=== PATIENT | male | born 1995 | race American Indian/Alaskan Native ===

== ENCOUNTER 2019-01-26 22:43 | Emergency (ER) | payer OTHER ==
[2019-01-27] MEDS ORDERED: MORPHINE IV ONE ×2 (01:53→03:05)
--- NOTE | 2019-01-27 02:23 | XRay Report ---
PROCEDURE: XR KNEE 1-2V RT TECHNIQUE: AP and lateral views of the right knee were obtained. HISTORY: fall with laceration to bone COMPARISONS: None FINDINGS: There is extensive soft tissue laceration deformity in the infrapatellar soft tissues. Injury to the patellar tendon cannot be excluded. A definite fracture is not seen. IMPRESSION: Extensive soft tissue injury and deformity of the infrapatellar area. Injury to the patellar tendon c annot be excluded. No definite acute fracture seen.. This document is electronically signed by Derek Quintana MD., January 27 2019 02:21:39 AM ET
--- NOTE | 2019-01-27 02:45 | Emergency Department Report ---
- General Chief Complaint: Wound/Laceration Stated Complaint: R KNEE INJURY Time Seen by Provider: 01/27/19 01:32 Source: patient Mode of arrival: Ambulatory Limitations: No Limitations - History of Present Illness Initial Comments: 23-year-old -[place] Citizen male comes in for right knee laceration status post fall. She reports she was running around a car to get in the front seat when he slipped and fell and hit his knee on the bumper of a car. Patient reports that he is up-to-date on his tetanus shot. Patient has no past medical history currently takes no medications on a daily basis does not smoke and no surgical history. -: During the night Extremity Location: Right: Knee Place: outdoors Patient Tetanus UTD: Yes Context: accidental Associated Symptoms: pain Treatments Prior to Arrival: bandage - Related Data Previous Rx's Medication Instructions Recorded Last Taken Type Ibuprofen [Motrin 800 MG tab] 800 mg PO Q8HR PRN #30 tablet 01/27/19 Unknown Rx cephALEXin [Keflex] 500 mg PO Q8HR #30 cap 01/27/19 Unknown Rx traMADol [Ultram 50 MG tab] 50 mg PO Q6HR PRN #12 tablet 01/27/19 Unknown Rx Allergies Allergy/AdvReac Type Severity Reaction Status Date / Time No Known Allergies Allergy Unverified 01/27/19 03:05 ED Review of Systems ROS: Stated complaint: R KNEE INJURY Other details as noted in HPI Comment: All other systems reviewed and negative Skin: other ED Past Medical Hx - Past Medical History Previous Medical History?: No - Surgical History Past Surgical History?: No - Social History Smoking Status: Never Smoker Substance Use Type: None - Medications Home Medications: Home Medications Medication Instructions Recorded Confirmed Last Taken Type Ibuprofen [Motrin 800 MG tab] 800 mg PO Q8HR PRN #30 tablet 01/27/19 Unknown Rx cephALEXin [Keflex] 500 mg PO Q8HR #30 cap 01/27/19 Unknown Rx traMADol [Ultram 50 MG tab] 50 mg PO Q6HR PRN #12 tablet 01/27/19 Unknown Rx ED Physical Exam - General Limitations: No Limitations General appearance: alert, in no apparent distress - Head Head exam: Present: atraumatic, normocephalic - Eye Eye exam: Present: normal appearance - Expanded Lower Extremity Exam Right Hip exam: Present: normal inspection, full ROM Upper Leg exam: Present: normal inspection, full ROM Knee exam: Present: full ROM, tenderness, laceration Lower Leg exam: Present: normal inspection, full ROM Ankle exam: Present: normal inspection, full ROM Foot/Toe exam: Present: normal inspection, full ROM - Neurological Exam Neurological exam: Present: alert, oriented X3 - Psychiatric Psychiatric exam: Present: normal affect, normal mood - Expanded Skin Exam Expanded Type of lesion: Present: laceration (12 cm) Distribution of rash: RLE ED Course Vital Signs 01/26/19 01/27/19 01/27/19 23:06 03:14 06:15 Temperature 98.0 F 98.1 F Pulse Rate 63 74 Respiratory 18 17 16 Rate Blood Pressure 106/84 Blood Pressure 102/65 [Left] O2 Sat by Pulse 97 99 Oximetry - Laceration /Wound Repair Right Knee Wound Location: lower extremity (right knee) Wound's Depth, Shape: into muscle, linear, irregular Wound Explored: no foreign body removed Irrigated w/ Saline (ccs): 500 Betadine Prep?: Yes Anesthesia: Lidocaine w/ Epi Volume Anesthetic (ccs): 10 Wound Debrided: minimal Wound Repaired With: sutures Suture Size/Type: 3:0 Number of Sutures: 13 Layer Closure?: Yes Deep Layer Suture Size/Type: 3:0, gut Number Deep Layer Sutures: 6 Sterile Dressing Applied?: Yes Progress: Patient tolerated well. ED Medical Decision Making - Radiology Data Radiology results: report reviewed Patient: STEVE GILLIS MR#: [id number] : 1995 Acct:[id number] Age/Sex: 23 / M ADM Date: 01/26/19 Loc: ED Attending Dr: Ordering Physician: FIDEL STILL Date of Service: 01/27/19 Procedure(s): XR knee 1-2V RT Accession Number(s): [id number] cc: FIDEL STILL Fluoro Time In Minutes: PROCEDURE: XR KNEE 1-2V RT TECHNIQUE: AP and lateral views of the right knee were obtained. HISTORY: fall with laceration to bone COMPARISONS: None FINDINGS: There is extensive soft tissue laceration deformity in the infrapatellar soft tissues. Injury to the patellar tendon cannot be excluded. A definite fracture is not seen. IMPRESSION: Extensive soft tissue injury and deformity of the infrapatellar area. Injury to the patellar tendon cannot be excluded. No definite acute fracture seen.. This document is electronically signed by Young Quintana MD., January 27 2019 02:21:39 AM ET Transcribed By: AMARA Dictated By: YOUNG QUINTANA MD Electronically Authenticated By: YOUNG QUINTANA MD Signed Date/Time: 01/27/19222 DD/ 2 TD/TT: 01/27/19212 - Medical Decision Making Patient is being evaluated by this provider fast track. Laceration repair. Patient was placed in a knee immobilizer and crutches. Discussed with Dr. Sagastume orthopedic provider regarding patient's laceration and radiology concern that he is not able to clear for tendon involvement. After Mitesh's gave orders for patient to be placed in a knee immobilizer antibiotics. Discussed the patient needs to follow up with orthopedic symptom information for Dr. Sagastume. Critical care attestation.: If time is entered above; I have spent that time in minutes in the direct care of this critically ill patient, excluding procedure time. ED Disposition Clinical Impression: Laceration of knee, left, complicated Qualifiers: Encounter type: initial encounter Qualified Code(s): S81.012A - Laceration without foreign body, left knee, initial encounter Disposition: - TO HOME OR SELFCARE Is pt being admited?: No Does the pt Need Aspirin: No Condition: Stable Instructions: Suture Care (ED), Laceration (ED), Absorbable Suture Care (ED) Additional Instructions: Please take pain medication as needed. It is very important for you to follow up with orthopedic provider I have listed his inflammation below. Return to the ER to have sutures removed in 7-10 days. Prescriptions: cephALEXin [Keflex] 500 mg PO Q8HR #30 cap Ibuprofen [Motrin 800 MG tab] 800 mg PO Q8HR PRN #30 tablet PRN Reason: Pain , Severe (7-10) traMADol [Ultram 50 MG tab] 50 mg PO Q6HR PRN #12 tablet PRN Reason: Pain [facility] [Primary Care Provider[facility] - 3-5 Days YOUNG SAGASTUME MD [Staff Physician] - 3-5 Days Forms: Accompanied Note, Work/School Release Form(ED)
[2019-01-27] MEDS ORDERED: NACL 0.9% 500 ML IR ONE (03:04)
[2019-01-27] MEDS ORDERED: XYLOCAINE 2%/EPI 1:100,000 INFILTRATI ONE (04:03)
[2019-01-27] MEDS ORDERED: XYLOCAINE 2%/ EPI 1:200,000 INFILTRATI ONE (04:16)
[2019-01-27] MEDS ORDERED: PERCOCET 5/325 PO ONE (05:54)
[2019-01-27] MEDS ORDERED: NACL 0.9% IR ONE (05:54)
[2019-01-27] MEDS ORDERED: PERCOCET 5/325 ONE (05:57)
[2019-01-27 06:17] VITALS: BP 102/65
== END 2019-01-27 06:15 | disposition home or self-care (01) ==
LOC: ED 22:43
DX: S81.011A Laceration without foreign body, right knee, initial encounter (principal); W18.30XA Fall on same level, unspecified, initial encounter; Y93.89 Activity, other specified; Y92.89 Other specified places as the place of occurrence of the external cause; Y99.8 Other external cause status
CPT/HCPCS: 12001; 73560; 96374; 96376; 99283; J2270